=== PATIENT | female | born 1965 | race African-American/Black ===

== ENCOUNTER 2019-08-01 09:12 | Inpatient (IN) | payer MEDICAID ==
[~2019-08-01] VITALS: Ht 162.6 cm; Wt 63.5 kg
[2019-08-01] MEDS ORDERED: Morphine Sulfate 4mg/ml Inj (IV USE ONLY) IVP ONE ×2 (09:15→10:15)
[2019-08-01 09:20] VITALS: BP 152/87
--- NOTE | 2019-08-01 09:20 | NUR ---
ED Nurse Note: Pt from home and brought in by ambulance due to severe abd pain with N/V started last night. Hx of hernia and surgery was done last year. Denies blood in emesis. AAO x4 ,follows commands. Moaning in pain.
--- NOTE | 2019-08-01 09:30 | Emergency Room Report ---
History of Present Illness General Chief Complaint: Abdominal Pain Source: Patient, EMS Present Illness HPI Patient is a 53-year-old female past medical history of abdominal hernia with repair who presents to the ER complaining of abdominal pain that began last night. Patient complains of nausea and vomiting. She denies any fever or chills. She denies any chest pain or shortness of breath. She denies any dysuria or hematuria. She denies of any constipation or diarrhea. Patient was brought in by EMS. Allergies: Coded Allergies: No Known Allergies (Unverified , 08/01/19) COVID-19 Screening Contact w/high risk pt: No Recent Travel to affected area: No Experienced COVID-19 symptoms?: No Patient History Reviewed Nursing Documentation: PMH: Agreed; PSxH: Agreed Nursing Documentation-PMH Past Medical History: No History, Except For Hx Gastrointestinal Problems: Yes - Hernia Review of Systems All Other Systems: negative except mentioned in HPI Physical Exam Vital Signs Date Time Temp Pulse Resp B/P (MAP) Pulse Ox O2 Delivery O2 Flow Rate FiO2 08/01/19 09:10 98.1 78 16 152/87 (108) 99 Room Air Sp02 EP Interpretation: reviewed, normal General Appearance: alert, GCS 15, non-toxic, moderate distress Head: normocephalic, atraumatic Eyes: bilateral eye normal inspection, bilateral eye PERRL ENT: hearing grossly normal, normal pharynx, no angioedema, normal voice Neck: full range of motion, supple/symm/no masses Respiratory: chest non-tender, lungs clear, normal breath sounds, speaking full sentences Cardiovascular #1: regular rate, rhythm, no edema Gastrointestinal: other - Diffuse abdominal pain with no guarding or rebound Rectal: deferred Genitourinary: normal inspection, no CVA tenderness Musculoskeletal: back normal, normal range of motion, no calf tenderness, gait/ station normal, non-tender Neurologic: alert, motor strength/tone normal, oriented x3, sensory intact, responsive, speech normal Psychiatric: judgement/insight normal, memory normal, mood/affect normal, no suicidal/homicidal ideation Skin: no rash Lymphatic: no adenopathy Medical Decision Making Diagnostic Impression: Primary Impression: Intractable abdominal pain Additional Impressions: UTI (urinary tract infection) Tetrahydrocannabinol (THC) dependence ER Course Patient crying in pain. Patient given multiple doses of IV narcotics. Patient CT demonstrates no significant acute intra-abdominal pathology. Patient's drug screen is positive for THC and opiates but urine sample was taken after patient was given IV narcotics therefore that is probably the positive finding. Patient does have evidence for UTI and has been given Rocephin. Patient will be admitted for further treatment and evaluation. Laboratory Tests Test 08/01/19 09:25 08/01/19 10:42 White Blood Count 14.0 K/UL (4.8-10.8) H Red Blood Count 4.77 M/UL (4.20-5.40) Hemoglobin 14.0 G/DL (12.0-16.0) Hematocrit 40.2 % (37.0-47.0) Mean Corpuscular Volume 84 FL (80-99) Mean Corpuscular Hemoglobin 29.3 PG (27.0-31.0) Mean Corpuscular Hemoglobin Concent 34.7 G/DL (32.0-36.0) Red Cell Distribution Width 10.9 % (11.6-14.8) L Platelet Count 247 K/UL (150-450) Mean Platelet Volume 4.8 FL (6.5-10.1) L Neutrophils (%) (Auto) % (45.0-75.0) Lymphocytes (%) (Auto) % (20.0-45.0) Monocytes (%) (Auto) % (1.0-10.0) Eosinophils (%) (Auto) % (0.0-3.0) Basophils (%) (Auto) % (0.0-2.0) Differential Total Cells Counted 100 Neutrophils % (Manual) 94 % (45-75) H Lymphocytes % (Manual) 5 % (20-45) L Monocytes % (Manual) 1 % (1-10) Eosinophils % (Manual) 0 % (0-3) Basophils % (Manual) 0 % (0-2) Band Neutrophils 0 % (0-8) Platelet Estimate Adequate Platelet Morphology Normal Red Blood Cell Morphology Normal Prothrombin Time 11.0 SEC (9.30-11.50) Prothrombin Time INR 1.0 (0.9-1.1) Activated Partial Thromboplast Time 26 SEC (23-33) Sodium Level 142 MMOL/L (136-145) Potassium Level 3.0 MMOL/L (3.5-5.1) L Chloride Level 104 MMOL/L (98-107) Carbon Dioxide Level 24 MMOL/L (21-32) Anion Gap 14 mmol/L (5-15) Blood Urea Nitrogen 10 mg/dL (7-18) Creatinine 1.0 MG/DL (0.55-1.30) Estimated Glomerular Filtration Rate 58.5 mL/min (>60) Glucose Level 160 MG/DL (74-106) H Calcium Level 8.9 MG/DL (8.5-10.1) Magnesium Level 1.8 MG/DL (1.8-2.4) Total Bilirubin 0.8 MG/DL (0.2-1.0) Aspartate Amino Transferase (AST) 25 U/L (15-37) Alanine Aminotransferase (ALT) 26 U/L (12-78) Alkaline Phosphatase 65 U/L (46-116) Total Protein 7.6 G/DL (6.4-8.2) Albumin 4.3 G/DL (3.4-5.0) Globulin 3.3 g/dL Albumin/Globulin Ratio 1.3 (1.0-2.7) Lipase 71 U/L (73-393) L Urine Color Pale yellow Urine Appearance Clear Urine pH 6.5 (4.5-8.0) Urine Specific [place] 1.015 (1.005-1.035) Urine Protein 2+ (NEGATIVE) H Urine Glucose (UA) 1+ (NEGATIVE) H Urine Ketones 2+ (NEGATIVE) H Urine Blood 3+ (NEGATIVE) H Urine Nitrite Negative (NEGATIVE) Urine Bilirubin Negative (NEGATIVE) Urine Urobilinogen Normal MG/DL (0.0-1.0) Urine Leukocyte Esterase 1+ (NEGATIVE) H Urine RBC 5-10 /HPF (0 - 2) H Urine WBC 5-10 /HPF (0 - 2) H Urine Squamous Epithelial Cells Moderate /LPF (NONE/OCC) H Urine Bacteria Few /HPF (NONE) Urine Opiates Screen Positive (NEGATIVE) H Urine Barbiturates Screen Negative (NEGATIVE) Phencyclidine (PCP) Screen Negative (NEGATIVE) Urine Amphetamines Screen Negative (NEGATIVE) Urine Benzodiazepines Screen Negative (NEGATIVE) Urine Cocaine Screen Negative (NEGATIVE) Urine Marijuana (THC) Screen Positive (NEGATIVE) H Last Vital Signs Date Time Temp Pulse Resp B/P (MAP) Pulse Ox O2 Delivery O2 Flow Rate FiO2 08/01/19 09:10 98.1 78 16 152/87 (108) 99 Room Air Disposition: ADMITTED INPATIENT Condition: Critical Physician Consult: Sharron Simmons M.D. August 01, 2019 09:30
--- NOTE | 2019-08-01 09:37 | NUR ---
ED Nurse Note: Collected blood specimen then sent.
--- NOTE | 2019-08-01 09:55 | NUR ---
ED Nurse Note: Dr Navin neumann for pt to have ice chips.
[2019-08-01 10:07] LABS: ANION GAP 14 mmol/L (5-15); BLOOD UREA NITROGEN 10 mg/dL (7-18); CALCIUM 8.9 MG/DL (8.5-10.1); CARBON DIOXIDE 24 MMOL/L (21-32); CHLORIDE 104 MMOL/L (98-107); SODIUM 142 MMOL/L (136-145)
[2019-08-01 10:09] LABS: HEMATOCRIT 40.2 % (37.0-47.0); MEAN CORPUSCULAR VOLUME 84 FL (80-99); PLATELET COUNT 247 K/UL (150-450); RED BLOOD COUNT 4.77 M/UL (4.20-5.40); RED CELL DISTRIBUTION WIDTH 10.9 % (11.6-14.8)
[2019-08-01 10:11] LABS: ALANINE AMINOTRANSFERASE 26 U/L (12-78); ALBUMIN 4.3 G/DL (3.4-5.0); ALBUMIN/GLOBULIN RATIO 1.3 (1.0-2.7); ALKALINE PHOSPHATASE 65 U/L (46-116); ASPARTATE AMINO TRANSFERASE 25 U/L (15-37); BILIRUBIN,TOTAL 0.8 MG/DL (0.2-1.0)
[2019-08-01 11:14] LABS: APPEARANCE,URINE CLEAR; BILIRUBIN, URINE NEGATIVE (NEGATIVE); COLOR,URINE PALE YELLOW; GLUCOSE, URINE (UA) 1+ (NEGATIVE); KETONES,URINE 2+ (NEGATIVE); LEUKOCYTE ESTERASE ,URINE 1+ (NEGATIVE); NITRITE,URINE NEGATIVE (NEGATIVE); PH,URINE 6.5 (4.5-8.0); PROTEIN,URINE 2+ (NEGATIVE); UROBILINOGEN,URINE NORMAL MG/DL (0.0-1.0)
[2019-08-01 11:20] VITALS: BP 143/80
[2019-08-01] MEDS ORDERED: cefTRIAXone 1 GM in NS 55 ML IVPB ONE (12:00)
[2019-08-01 13:34] VITALS: BP 148/86
[2019-08-01 16:30] VITALS: BP 132/75
[2019-08-01] MEDS ORDERED: HYDROcodone/Acetamin 10/325 tab ORAL PRN (17:00)
--- NOTE | 2019-08-01 17:00 | NUR ---
NURSE NOTE Received patient from ER,patient is alert and oriented,respirations unlabored.IV left arm in place.No complaints of pain or nausea at this time,call light within reach.
--- NOTE | 2019-08-01 17:10 | NUR ---
ED Nurse Note: REPORT GIVEN ANN-MARIE TALAMANTES
--- NOTE | 2019-08-01 18:00 | NUR ---
NURSE NOTES: clarification,In patient history,patient state she has sickle cell trait she does not have sickle cell disease I was unable to edit in the history assessment.
[2019-08-01] MEDS: Heparin 5000 units/ml inj SUBQ SCH (19:11)
--- NOTE | 2019-08-01 19:30 | NUR ---
NURSE NOTES: RECEIVED PATIENT FROM ANN-MARIE NOEL. PATIENT IS AWAKE, AAOX4, ON ROOM AIR, NO ACUTE DISTRESS NOTED. PATIENT DENIES N/V, REPORTS 3/10 ABDOMEN PAIN BUT TOLERABLE. SKIN IS INTACT. IV ON LEFT AC IS INTACT AND PATENT. BED IS LOCKED AND LOW, BED ALARMS ACTIVE, SIDE RAILS UP X2 AND CALL LIGHT IS WITHIN REACH. WILL CONTINUE TO MONITOR.
--- NOTE | 2019-08-01 19:36 | NUR ---
HAND-OFF: Report given to NICK RN.
[2019-08-01 20:00] VITALS: BP 116/64
[2019-08-01] MEDS: Piperacillin/Tazobactam 3.375 GM in NS 110 ML IVPB SCH (21:23)
[2019-08-02] VITALS: BP 115/70
[2019-08-02 04:00] VITALS: BP 133/74
[2019-08-02] MEDS: Piperacillin/Tazobactam 3.375 GM in NS 110 ML IVPB SCH ×3 (06:00→21:15)
[2019-08-02 07:28] LABS: BASOPHILS % (AUTO) 1.5 % (0.0-2.0); EOSINOPHILS % (AUTO) 0.9 % (0.0-3.0); HEMATOCRIT 35.3 % (37.0-47.0); HEMOGLOBIN 12.4 G/DL (12.0-16.0); LYMPHOCYTES % (AUTO) 13.2 % (20.0-45.0); MEAN CORPUSCULAR VOLUME 85 FL (80-99); MONOCYTES % (AUTO) 9.9 % (1.0-10.0); NEUTROPHILS % (AUTO) 74.6 % (45.0-75.0); PLATELET COUNT 190 K/UL (150-450); RED BLOOD COUNT 4.14 M/UL (4.20-5.40); RED CELL DISTRIBUTION WIDTH 11.4 % (11.6-14.8); WHITE BLOOD COUNT 6.1 K/UL (4.8-10.8)
--- NOTE | 2019-08-02 07:34 | NUR ---
HAND-OFF: Report given to ANN-MARIE Lentz .
[2019-08-02 07:37] LABS: ALANINE AMINOTRANSFERASE 21 U/L (12-78); ALBUMIN 3.3 G/DL (3.4-5.0); ALBUMIN/GLOBULIN RATIO 1.1 (1.0-2.7); ALKALINE PHOSPHATASE 51 U/L (46-116); ANION GAP 7 mmol/L (5-15); ASPARTATE AMINO TRANSFERASE 20 U/L (15-37); BILIRUBIN,TOTAL 0.7 MG/DL (0.2-1.0); BLOOD UREA NITROGEN 6 mg/dL (7-18); CALCIUM 7.9 MG/DL (8.5-10.1); CARBON DIOXIDE 29 MMOL/L (21-32); CHLORIDE 108 MMOL/L (98-107); CREATININE 0.8 MG/DL (0.55-1.30); POTASSIUM 2.8 MMOL/L (3.5-5.1); SODIUM 144 MMOL/L (136-145)
--- NOTE | 2019-08-02 07:40 | NUR ---
NURSE NOTES: Patient awake, alert x4, sitting high smiley position and eating her breakfast; on room air, no sign of SBO, and no distress; no sing of chest pain; IV Left AC D5NS w/Kcl 20 mEq @100cc; side rails up x2, breaks engaged, bed at lowest position, call light within reach; will keep monitoring.
[2019-08-02 08:00] VITALS: BP 118/73
[2019-08-02] MEDS: Pantoprazole Inj IVP SCH (08:51)
[2019-08-02] MEDS: Heparin 5000 units/ml inj SUBQ SCH ×2 (08:53→21:16)
--- NOTE | 2019-08-02 10:13 | NUR ---
NURSE NOTES: Patient's K 2.8; I communicated the lab value to MD Hurt; waiting for order;
--- NOTE | 2019-08-02 11:09 | NUR ---
NURSE NOTES: I received order from MD Hurt; order carried out as order given;
[2019-08-02 12:00] VITALS: BP_SYST 120; BP_SYST 130; BP_DIAS 68; BP_DIAS 75
[2019-08-02 16:00] VITALS: BP 123/77
--- NOTE | 2019-08-02 16:37 | NUR ---
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 98.0 HR 78 RR 16 B/P 152/87 WBC 14.0 K 3.0 LIPASE 71 UA+ PROTEIN,GLUCOSE,KETONES,BLOOD,LEUKOCYTE ESTERASE WBC,SQUAMOUS EPTH CELL URINE TOX+ OPIATES AND THC IS: ROCEPHIN IV ZOSYN IV ADMITTED TO MED/SURG @ 3843 MED/SURG STATUS DCP RETURN HOME
--- NOTE | 2019-08-02 19:18 | NUR ---
HAND-OFF: Report given to ANN-MARIE Thompson.
--- NOTE | 2019-08-02 19:20 | NUR ---
NURSE NOTES: Pt. received from ANN-MARIE Lentz. Pt. AAOx4, on room air, no complaints of pain, no indications of respiratory distress. IV right wrist 22g intact and patent, running D5 NS with 20 mEq KCl at 100cc/hr. Bed is low and locked, side rails x2 up, and call light is in reach. Will continue to monitor.
[2019-08-02 20:00] VITALS: BP 124/74
[2019-08-03] VITALS: BP 149/65
[2019-08-03 04:00] VITALS: BP 113/67
[2019-08-03] MEDS: Piperacillin/Tazobactam 3.375 GM in NS 110 ML IVPB SCH (05:15)
[2019-08-03] MEDS ORDERED: NORCO 10-325 T1 EACH ORAL (06:45)
[2019-08-03] MEDS ORDERED: PROTONIX20 MG ORAL (06:45)
[2019-08-03] MEDS ORDERED: Milk of Magnesia 30ml Ud ORAL SCH (06:45)
[2019-08-03] MEDS ORDERED: COLACE100 MG ORAL (06:45)
--- NOTE | 2019-08-03 07:21 | NUR ---
NURSE NOTES: Patient awake, alert x4; room air, no sing of distress and shortness of breath; no sign of chest pain; IV Right-Wrist D5NS w/Kcl 20mEq 100cc; patient ambulatory; side rails up x2, breaks engaged, bed at lowest position; call light within reach; will keep monitoring.
--- NOTE | 2019-08-03 07:43 | NUR ---
HAND-OFF: Report given to ANN-MARIE Lentz.
[2019-08-03 08:00] VITALS: BP 118/75
--- NOTE | 2019-08-03 08:00 | History and Physical Report ---
DATE OF ADMISSION: 08/01/2019 CHIEF COMPLAINT: Abdominal pain. HISTORY OF PRESENT ILLNESS: This is a pleasant 53-year-old female. She has a prior history of multiple hernia repairs and presented with complaints of abdominal pain. She had several episodes of vomiting of clear fluid. She has had similar pains in the past related to hernia that she has had repaired several times. She denies any fevers or chills. No chest pain. No shortness of breath. No cough. No diarrhea. No dysuria. In the emergency room, she was noted to have white count of 14,000. She also had a UA that had 5-[address] scan was done and per report, this was unremarkable. In light of the patient's pain and leukocytosis, she was admitted. PAST MEDICAL HISTORY: Includes hernia. PAST SURGICAL HISTORY: Includes hernia repair. CURRENT MEDICATIONS: None. FAMILY HISTORY: Significant for diabetes. SOCIAL HISTORY: negative ethanol or drugs. REVIEW OF SYSTEMS: Negative except for abdominal pain and vomiting. PHYSICAL EXAMINATION: VITAL SIGNS: Temperature 98, pulse 78, respirations 16, blood pressure 152/87. GENERAL: The patient is well developed, in no apparent distress. LUNGS: Clear. ABDOMEN: Soft. There is a well-healed midline scar. There is no obvious hernia noted. EXTREMITIES: No clubbing, cyanosis, or edema. LABORATORY DATA: UA showed 5-[address] scan results are pending. ASSESSMENT: This is a 53-year-old female who presents because of abdominal pain similar to prior episodes of abdominal pain related to her hernia. There is a bulge noted I suspect the pain is due to a hernia, cannot rule out UTI. PLAN: Follow up CT scan. Empiric antibiotic therapy to cover UTI. If CAT scan is negative, the patient will be discharged home and follow up as an outpatient with her regular doctor for evaluation for hernia repair.. Await results of CT scan. Marty Hurt M.D. DR: AMARA JOB#: [id number] CC: ZEV
[2019-08-03] MEDS: Pantoprazole Inj IVP SCH (08:25)
[2019-08-03] MEDS: Heparin 5000 units/ml inj SUBQ SCH (08:27)
--- NOTE | 2019-08-03 11:26 | NUR ---
CASE MANAGEMENT:REVIEW 08/03/19 SI: ABDOMINAL PAIN 97.7 62 17 118/75 99% ON RA IS: IV PROTONIX QD IV ZOSYN Q8HRS IVF@100/HR HEPARIN SQ Q12 : MED/SURG STATUS DCP: FROM HOME PLAN: DISCHARGE HOME TODAY
--- NOTE | 2019-08-03 14:00 | NUR ---
NURSE NOTES: Patient discharged to Home; left the floor ambulating; IV access and name tag removed upon discharge; patient signed belonging lists and have the belongings with patient; original medication prescription given to patient, copy in file; patient was stable upon discharge;
--- NOTE | 2019-08-03 16:30 | Diagnostic Imaging Report ---
EXAM: CT CT Abdomen Pelvis WO Contrast INDICATION: Reason For Exam: ABD PAIN. COMPARISON: None TECHNIQUE: Axial images were obtained through the abdomen and pelvis without intravenous contrast. Sagittal and coronal reformats are generated. All CT scans at this facility are performed using dose modulation techniques as appropriate to a performed exam including the following: automated exposure control with adjustment of the mA and/or kV according to patient size. RADIATION DOSE: CTDIvol: 3.9 mGy DLP: 185.8 mGy-cm Dose information generated by the CT scanner is available in PACS. FINDINGS: The lung bases are clear. The liver and spleen are homogeneous. Gallbladder is without sludge or stone and there is no wall thickening. The pancreas is unremarkable. Adrenals are normal in morphology. There is right intrarenal stone. No hydronephrosis seen bilaterally. Small bowel loops are nondistended. The colon is also nondistended with average amount of stool. The appendix is normal. There is no free fluid or free air. No pathologic adenopathy demonstrated. Urinary bladder appears unremarkable. Uterus is midline with an enlarged calcified exophytic fibroid. There is an IUD in place. IMPRESSION: RIGHT RENAL STONE. NO HYDRONEPHROSIS. CALCIFIED EXOPHYTIC FIBROID. IUD IN PLACE.
--- NOTE | 2019-08-06 12:58 | Discharge Summary ---
Discharge Summary Discharge Summary _ dc summary #[id number] Maribell Miller NP August 06, 2019 12:58
--- NOTE | 2019-08-07 04:30 | Discharge Summary 2 SIG ---
DATE OF ADMISSION: 08/01/2019 DATE OF DISCHARGE: 08/03/2019 REASON FOR ADMISSION: A 53-year-old female with past medical history of multiple hernia repairs presented to emergency room complaining of abdominal pain. Patient reported several episodes of vomiting of clear fluids. Patient reported prior repair. No fever or chills. No chest pain. No shortness of breath. No cough. No diarrhea. No dysuria. In the emergency department, laboratory workup revealed leukocytosis, WBC 14. Urinalysis revealed pyuria with 5 [address] scan of abdomen and pelvis revealed right renal stone. No hydronephrosis. Calcified fibroid. IUD in place. No acute right intrarenal stone. No other acute abnormality. Urine toxicology screen was positive for opiates and marijuana. Potassium 3.0, stable renal parameters. Stable LFT. Lipase 71. Patient received analgesics. Received dose of Rocephin and admitted for further management. HOSPITAL COURSE: Patient admitted to medical/surgical floor. Patient started on empiric antibiotics. Potassium was replaced. Magnesium was stable. Final result of CT of the abdomen and pelvis showed no acute pathology. Pain management was addressed as needed. Patient was able to tolerate diet. Patient clinically stabilized and was ready for discharge. Patient to follow up as outpatient with her primary care provider for evaluation of her hernia repair. DISCHARGE MEDICATIONS: See medication reconciliation list. DISCHARGE INSTRUCTION: Patient was discharged home. FOLLOWUP: Patient to follow up with her primary care provider for referral for hernia repair. Marty Hurt M.D. I have been assigned to dictate discharge summary on this account and I was not involved in the patient's management. Maribell jaimesbigg) N.P. DR: DOROTHY JOB#: [id number] CC:
== END 2019-08-03 13:27 | disposition home or self-care (01) | DRG 251 ==
LOC: EDBD 09:12 → EMR 10:30 → 4E 12:14 → EDBEDREQ 15:46
DX: R10.9 Unspecified abdominal pain (principal); N39.0 Urinary tract infection, site not specified; N20.0 Calculus of kidney
CPT/HCPCS: 36415; 74176; 80053; 80307; 81003; 83690; 83735; 85007; 85025; 85610; 85730; 86850; 86900; 86901; 96365; 96375; 96376; 99285; J2405